=== PATIENT | female | born 1960 | race Caucasian/White ===

== ENCOUNTER 2025-04-01 16:27 | Inpatient (IN) | payer MEDICAID ==
[~2025-04-01] VITALS: Ht 134.6 cm; Wt 68.0 kg
[~2025-04-01 16:27] MED LIST: ASPI-1160 PO; CLOP-31 PO; EZET10TA81 PO; ISOS60TA76 PO; LISI10TA26 PO
[2025-04-01 16:36] VITALS: O2SAT 98
[2025-04-01] MEDS: SODIUM CHLORIDE 0.9% 1,000 ML IV ONE (17:15)
[2025-04-01] MEDS: ONDANSETRON HCL 4MG/2ML INJ IV ONE ×2 (17:15→21:00)
[2025-04-01] MEDS ORDERED: MORPHINE SULFATE 4 MG/ML INJ (FOR IV/IM USE) IV ONE (17:15)
[2025-04-01 18:02] LABS: BASOPHILS % 0.4 % (0.0-2.0); EOSINOPHILS % 0.6 % (0.0-5.0); HEMATOCRIT. 41.4 % (36.0-48.0); HEMOGLOBIN. 13.8 g/dL (12.0-16.0); LYMPHOCYTES % 19.1 % (20.0-50.0); MEAN PLATELET VOLUME 7.5 fl (7.4-10.4); MONOCYTES % 6.6 % (2.0-8.0); NEUTROPHILS % 73.3 % (40.0-76.0); PLATELET 282 x1000/uL (130-400); RED BLOOD CELL COUNT 4.50 mill/uL (4.2-5.4); RED CELL DISTRIBUTION WIDTH 13.1 % (11.6-14.6)
[2025-04-01 18:15] LABS: CREATININE 1.3 mg/dL (0.6-1.0); UREA NITROGEN BLOOD 17 mg/dL (9-23)
[2025-04-01 18:16] LABS: PROTEIN TOTAL 7.7 g/dL (6.0-8.3); TROPONIN I HIGH SENSITIVITY 13 ng/L (3.0-34)
[2025-04-01 18:17] LABS: ASPARTATE AMINOTRANSFERASE 24 IU/L (<34); BILIRUBIN DIRECT 0.1 mg/dL (<=3.0); BILIRUBIN TOTAL 0.5 mg/dL (0.1-1.0)
[2025-04-01] MEDS: KETOROLAC 15MG/ML VIAL IV ONE (18:24)
[2025-04-01] MEDS: MORPHINE SULFATE 4 MG/ML INJ (FOR IV/IM USE) IV ONE (21:00)
[2025-04-01] MEDS: CEFTRIAXONE 1GM/50ML 50 ML IV ONE (22:44)
[2025-04-01 23:45] VITALS: BP 140/54; PULSE 97; RESP 18; TEMP 36.6404
[2025-04-02] VITALS: BP 150/80; PULSE 99; RESP 20; TEMP 36.7; O2SAT 94
[2025-04-02] MEDS ORDERED: DEXTROSE 50% WATER 50ML SYRINGE IV PRN (01:30)
[2025-04-02] MEDS ORDERED: CEFTRIAXONE SODIUM 1G VIAL IV SCH (01:30)
[2025-04-02] MEDS: HYDROCODONE/ACETAMINOPHEN 5/325MG TABLET PO PRN (02:04)
[2025-04-02 03:07] LABS: TROPONIN I HIGH SENSITIVITY 10 ng/L (3.0-34)
[2025-04-02 04:00] VITALS: BP 103/52; PULSE 110; RESP 20; TEMP 36.7; O2SAT 93
[2025-04-02] MEDS: BLOOD SUGAR DIAGNOSTIC STRIP TEST SCH (06:43)
[2025-04-02 06:52] LABS: BASOPHILS % 0.2 % (0.0-2.0); EOSINOPHILS % 0.0 % (0.0-5.0); HEMATOCRIT. 41.6 % (36.0-48.0); HEMOGLOBIN. 13.8 g/dL (12.0-16.0); LYMPHOCYTES % 12.9 % (20.0-50.0); MEAN PLATELET VOLUME 8.1 fl (7.4-10.4); MONOCYTES % 6.8 % (2.0-8.0); NEUTROPHILS % 80.1 % (40.0-76.0); PLATELET 272 x1000/uL (130-400); RED BLOOD CELL COUNT 4.51 mill/uL (4.2-5.4); RED CELL DISTRIBUTION WIDTH 13.3 % (11.6-14.6)
[2025-04-02 07:01] LABS: CREATININE 1.6 mg/dL (0.6-1.0)
[2025-04-02] MEDS: INSULIN LISPRO 100 UNITS/ML SUBCUT SCH (07:01)
[2025-04-02 07:02] LABS: LDL CHOLESTEROL 38 mg/dL (5-100); PROTEIN TOTAL 7.0 g/dL (6.0-8.3); TRIGLYCERIDE 91 mg/dL (0-150); UREA NITROGEN BLOOD 20 mg/dL (9-23)
[2025-04-02 07:03] LABS: ASPARTATE AMINOTRANSFERASE 26 IU/L (<34)
[2025-04-02 07:04] LABS: BILIRUBIN TOTAL 0.5 mg/dL (0.1-1.0)
[2025-04-02 08:00] VITALS: BP 112/66; PULSE 93; RESP 18; TEMP 36.8; O2SAT 96
[2025-04-02 08:33] LABS: CLARITY URINE TURBID (CLEAR); COLOR URINE RED (YELLOW); GLUCOSE URINE 3+ (NEGATIVE); KETONES URINE TRACE (NEGATIVE); LEUKOCYTE ESTERASE URINE 2+ (NEGATIVE); NITRITE URINE NEGATIVE (NEGATIVE); OCCULT BLOOD URINE 3+ (NEGATIVE); PH URINE 8.0 (4.5-8.0); PROTEIN URINE 3+ (NEGATIVE); SPECIFIC GRAVITY URINE 1.028 (1.005-1.030); UROBILINOGEN URINE 0.2 E.U./dL (0.2-1.0)
[2025-04-02] MEDS: ISOSORBIDE MONONITRATE 60MG TABLET SR 24HR PO SCH (08:56)
[2025-04-02] MEDS: CLOPIDOGREL 75MG TABLET PO SCH (08:57)
[2025-04-02] MEDS: EZETIMIBE 10MG TABLET PO SCH (08:57)
[2025-04-02] MEDS: ASPIRIN 81MG TABLET PO SCH (08:57)
[2025-04-02] MEDS: ENOXAPARIN 40MG/0.4ML SYR SUBCUT SCH (08:57)
[2025-04-02 09:08] LABS: RBC URINE TNTC /hpf (0-2); SQUAMOUS EPITHELIAL CELL URINE NONE SEEN /lpf (RARE/1+); WBC URINE TNTC /hpf (0-2)
[2025-04-02 09:09] LABS: BACTERIA URINE 1+
[2025-04-02] MEDS: INSULIN GLARGINE 100 UNITS/ML SUBCUT SCH (11:43)
[2025-04-02 12:00] VITALS: BP 91/60; PULSE 98; RESP 15; TEMP 36.7; O2SAT 98
[2025-04-02] MEDS: ACETAMINOPHEN 325MG TABLET PO PRN (13:00)
[2025-04-02] MEDS: SODIUM CHLORIDE 0.9% 250 ML IV ONE (13:28)
[2025-04-02] MEDS: MIDODRINE HCL 5MG TABLET PO SCH (15:13)
[2025-04-02] MEDS ORDERED: NALOXONE HCL 0.4MG/ML VIAL IV PRN (15:15)
[2025-04-02 16:00] VITALS: BP 96/78; PULSE 92; RESP 18; TEMP 36.6; O2SAT 94
[2025-04-02] MEDS: SODIUM CHLORIDE 0.45% 1,000 ML IV ONE (16:32)
[2025-04-02 20:00] VITALS: BP 98/65; PULSE 89; RESP 19; TEMP 36.4; O2SAT 95
[2025-04-02] MEDS ORDERED: CEFTRIAXONE 1GM/50ML 50 ML IV SCH (21:00)
[2025-04-02] MEDS: ATORVASTATIN CALCIUM 20MG TABLET PO SCH (21:36)
[2025-04-03] VITALS: BP 114/72; PULSE 77; RESP 18; TEMP 36.8; O2SAT 96
[2025-04-03 04:00] VITALS: BP 110/69; PULSE 68; RESP 19; TEMP 36.3; O2SAT 100
[2025-04-03 07:02] LABS: CREATININE 1.1 mg/dL (0.6-1.0); UREA NITROGEN BLOOD 20.0 mg/dL (9-23)
[2025-04-03 07:17] LABS: BASOPHILS % 0.6 % (0.0-2.0); EOSINOPHILS % 0.9 % (0.0-5.0); HEMATOCRIT. 36.3 % (36.0-48.0); HEMOGLOBIN. 11.9 g/dL (12.0-16.0); LYMPHOCYTES % 26.6 % (20.0-50.0); MEAN PLATELET VOLUME 8.0 fl (7.4-10.4); MONOCYTES % 8.9 % (2.0-8.0); NEUTROPHILS % 63.0 % (40.0-76.0); PLATELET 234 x1000/uL (130-400); RED BLOOD CELL COUNT 3.86 mill/uL (4.2-5.4); RED CELL DISTRIBUTION WIDTH 13.3 % (11.6-14.6)
[2025-04-03 08:00] VITALS: BP 121/62; PULSE 80; RESP 17; TEMP 36.7; O2SAT 98
[2025-04-03] MEDS ORDERED: LEVO-65 MT (11:34)
[2025-04-03 12:05] VITALS: BP 109/86; PULSE 80; RESP 18; TEMP 98
[2025-04-03] MEDS ORDERED: SODIUM CHLORIDE 0.9% 250 ML IV ONE (13:30)
== END 2025-04-03 12:43 | disposition home or self-care (01) | DRG 463 ==
LOC: ER 16:27 → 3WST 21:46 → EDBEDREQ 21:50 → EDBEDREQTM 21:50 → ENRESERV 22:35
PROVIDERS: ADMIT Internal Medicine; ATTEND Internal Medicine
DX: N13.6 Pyonephrosis (principal); N17.0 Acute kidney failure with tubular necrosis; Z79.02 Long term (current) use of antithrombotics/antiplatelets; E11.9 Type 2 diabetes mellitus without complications; I10 Essential (primary) hypertension; I25.10 Atherosclerotic heart disease of native coronary artery without angina pectoris; Z87.442 Personal history of urinary calculi; Z79.899 Other long term (current) drug therapy; Z79.82 Long term (current) use of aspirin
CPT/HCPCS: 36415; 74176; 80048; 80053; 80061; 80076; 81003; 82962; 83036; 83605; 83735; 84484; 85025; 87077; 87106; 87186; 93005; 99285; A4606; J0696; J1650; J1815; J1885; J2270; J2405; J7030; J7050